=== PATIENT | female | born 2000 | race Two or more races ===

== ENCOUNTER 2022-09-03 18:49 | Emergency (ER) | payer OTHER ==
--- NOTE | 2022-09-03 19:04 | ED Physician Documentation ---
History of Present Illness - Stated complaint Stated Complaint: ABD PAIN - Chief complaint Chief Complaint: Abd Pain - Additonal information Additional information: 22-year-old female presents emergency department for evaluation of 2 days focal left lower quadrant pelvic pain. Reportedly approximately 11 weeks . . Last delivered vaginally. Complicated only by gestational diabetes. Patient just moved to the [place] from [place]. She has not yet had an ultrasound confirming IUP. States her last several weeks she has been having some intermittent spotting as well as low pelvic cramping. Denies urinary symptoms. No fevers. Review of Systems Constitutional: reports: Reviewed and negative Cardiac: reports: Reviewed and negative Respiratory: reports: Reviewed and negative GI: reports: Reviewed and negative : reports: Now EGA Skin: reports: Reviewed and negative Musculoskeletal: reports: Reviewed and negative PD PAST MEDICAL HISTORY - Allergies Allergies/Adverse Reactions: Allergies Allergy/AdvReac Type Severity Reaction Status Date / Time No Known Drug Allergies Allergy Verified 09/03/22 18:51 PD ED PE NORMAL - General General: Alert and oriented X 3, No acute distress - HEENT HEENT: Atraumatic, Moist mucous membranes - Neck Neck: Supple, no meningeal sign, No adenopathy - Cardiac Cardiac: RRR, No murmur - Respiratory Respiratory: No respiratory distress, Clear bilaterally - Abdomen Abdomen: Normal bowel sounds, Soft. No: Non tender (Focal tenderness in the left lower quadrant of the pelvic region. Nonsurgical.) - Back Back: No CVA TTP - Derm Derm: Normal color, Warm and dry, No rash - Extremities Extremities: No deformity - Neuro Neuro: Alert and oriented X 3, jack prizer 2-12 intact Eye Opening: Spontaneous Motor: Obeys Commands Verbal: Oriented GCS Score: 15 Results - Vitals Vitals: Vital Signs - 24 hr 09/03/22 18:51 Temperature 36.8 C Heart Rate 68 Respiratory 16 Rate Blood Pressure 108/66 O2 Saturation 100 Oxygen O2 Source Room air - Labs Labs: Laboratory Tests 09/03/22 09/03/22 09/03/22 19:05 19:05 19:05 WBC 6.4 RBC 4.44 Hgb 11.9 L Hct 36.3 L MCV 81.8 MCH 26.8 L MCHC 32.8 RDW 13.9 Plt Count 250 MPV 10.7 Neut # (Auto) 3.8 Lymph # (Auto) 2.0 [place] # (Auto) 0.4 Eos # (Auto) 0.1 Baso # (Auto) 0.0 Absolute Nucleated RBC 0.00 Nucleated RBC % 0.0 Sodium 134 L Potassium 3.4 L Chloride 103 Carbon Dioxide 24 Anion Gap 7.0 BUN 8 Creatinine 0.5 Estimated GFR (MDRD) 154 Glucose 93 Calcium 8.6 Total Bilirubin 0.2 AST 15 ALT 10 Alkaline Phosphatase 46 Total Protein 7.1 Albumin 3.7 Globulin 3.4 Albumin/Globulin Ratio 1.1 Lipase 26 HCG, Quant 127020.00 Urine Color Urine Clarity Urine pH Ur Specific [place] Urine Protein Urine Glucose (UA) Urine Ketones Urine Occult Blood Urine Nitrite Urine Bilirubin Urine Urobilinogen Ur Leukocyte Esterase Urine RBC Urine WBC Ur Squamous Epith Cells Urine Bacteria Urine Mucus Ur Microscopic Review Urine Culture Comments Blood Type 09/03/22 09/03/22 19:05 19:15 WBC RBC Hgb Hct MCV MCH MCHC RDW Plt Count MPV Neut # (Auto) Lymph # (Auto) [place] # (Auto) Eos # (Auto) Baso # (Auto) Absolute Nucleated RBC Nucleated RBC % Sodium Potassium Chloride Carbon Dioxide Anion Gap BUN Creatinine Estimated GFR (MDRD) Glucose Calcium Total Bilirubin AST ALT Alkaline Phosphatase Total Protein Albumin Globulin Albumin/Globulin Ratio Lipase HCG, Quant Urine Color YELLOW Urine Clarity CLEAR Urine pH 6.5 Ur Specific [place] 1.025 Urine Protein NEGATIVE Urine Glucose (UA) NEGATIVE Urine Ketones NEGATIVE Urine Occult Blood NEGATIVE Urine Nitrite NEGATIVE Urine Bilirubin NEGATIVE Urine Urobilinogen 0.2 (NORMAL) Ur Leukocyte Esterase SMALL H Urine RBC 0-5 Urine WBC 4-5 Ur Squamous Epith Cells FEW Squamous Urine Bacteria Few Urine Mucus Moderate Strands Ur Microscopic Review INDICATED Urine Culture Comments INDICATED Blood Type A POSITIVE - Rads (name of study) OB US Relevant Findings:: Other (Per cytotechnologist/histotechnologist 10-week 1 day living IUP with good heart rate. 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 Due to moving with the [place] she has not yet been able to establish with an OB. On presentation she does have some focal pain in the left lower quadrant of the abdomen but no guarding or rebound. She is without fever, tachycardia or hypotension. Did obtain CBC, electrolytes, hCG, blood type and urinalysis. She is Rh+. Otherwise no acute findings with labs. 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 There was a single live 10-week 1 day IUP with good heart rate. Unfortunately there is also an associated moderate left subchorionic hemorrhage. No findings today to suggest ectopic I discussed these findings with the patient at the bedside. She will follow closely with [facility] to obtain the appropriate referral to OB. We discussed the usual emergent return precautions for any worsening bleeding or symptomatology Departure - Departure Disposition: Home, Self Care Clinical Impression: Subchorionic hemorrhage in first trimester Qualifiers: Fetus number: single or unspecified fetus Qualified Code(s): O41.8X10 - Other specified disorders of amniotic fluid and membranes, first trimester, not applicable or unspecified; O46.8X1 - Other antepartum hemorrhage, first trimester Condition: Stable Record reviewed to determine appropriate education?: Yes Comments: As discussed at the bedside the ultrasound today does show an approximate 10- week 1 day live uterine . There is an associated subchorionic hemorrhage. As discussed at the bedside this is when the placenta can begin to separate somewhat from the uterus causing a little bit of spotting and bleeding. Your hormone level today is 191,000. This absolutely confirms It is very important that you continue to follow closely with an chief dispatcher service for longer-term management of this . You can continue the vitamins. With subchorionic hemorrhages such as yours there is little that we can do an medicine to prevent further bleeding or miscarriage if it were to occur. You simply need to monitor your symptoms. Return to the ER if you have severe vaginal bleeding and where you saturate a pad every hour for 4 or more hours. Return if you have fevers or any fainting episodes.
[2022-09-03 19:11] LABS: BASOPHILS % (AUTO) 0.5 %; EOSINOPHILS # (AUTO) 0.1 10^3/uL (0.0-0.7); EOSINOPHILS % (AUTO) 1.4 %; HCT - HEMATOCRIT 36.3 % (37.0-47.0); HGB - HEMOGLOBIN 11.9 g/dL (12.0-16.0); LYMPHOCYTES % (AUTO) 31.7 %; MEAN CORPUSCULAR HEMOGLOBIN 26.8 pg (27.0-31.0); MEAN CORPUSCULAR HGB CONC 32.8 g/dL (32.0-36.0); MEAN CORPUSCULAR VOLUME 81.8 fL (81.0-99.0); MEAN PLATELET VOLUME 10.7 fL (7.9-10.8); MONOCYTES # (AUTO) 0.4 10^3/uL (0.0-1.0); MONOCYTES % (AUTO) 6.3 %; NEUTROPHILS # (AUTO) 3.8 10^3/uL (1.5-6.6); NEUTROPHILS % (AUTO) 59.9 %; PLT - PLATELET COUNT 250 10^3/uL (130-450); RED BLOOD COUNT 4.44 10^6/uL (4.20-5.40); RED CELL DISTRIBUTION WIDTH 13.9 % (12.0-15.0); WHITE BLOOD COUNT 6.4 x10^3/uL (4.8-10.8)
[2022-09-03 19:24] LABS: ALBUMIN 3.7 g/dL (3.2-5.5); ALBUMIN/GLOBULIN RATIO 1.1 (1.0-2.2); BILIRUBIN,TOTAL 0.2 mg/dL (0.2-1.0); CALCIUM 8.6 mg/dL (8.5-10.3); CREATININE 0.5 mg/dL (0.4-1.0); POTASSIUM 3.4 mmol/L (3.5-5.0); TOTAL PROTEIN 7.1 g/dL (6.7-8.2)
[2022-09-03 19:35] LABS: BILIRUBIN,URINE NEGATIVE (NEGATIVE); GLUCOSE, URINE (UA) NEGATIVE (NEGATIVE); KETONES,URINE (UA) NEGATIVE (NEGATIVE); LEUKOCYTE ESTERASE, URINE SMALL (NEGATIVE); NITRITE,URINE NEGATIVE (NEGATIVE); OCCULT BLOOD,URINE NEGATIVE (NEGATIVE); PH,URINE 6.5 PH (5.0-7.5); PROTEIN,URINE NEGATIVE (NEGATIVE); UROBILINOGEN,URINE 0.2 (NORMAL) E.U./dL (NORMAL)
[2022-09-03 19:37] LABS: CLARITY,URINE CLEAR (CLEAR)
[2022-09-03 19:50] LABS: BACTERIA,URINE Few /HPF (None Seen); MUCUS,URINE Moderate Strands; RBC,URINE 0-5 /HPF (0-5); SQUAMOUS EPITHELIAL CELL,UR FEW Squamous (<= Few)
[2022-09-03 21:09] VITALS: BP 105/66
--- NOTE | 2022-09-03 22:22 | Ultrasound Report ---
PROCEDURE: OB First Trimester INDICATIONS: LLQ abd pain; r/o ectopic OUTSIDE/PRIOR DATING DATA: Last menstrual period (LMP): 06/16/2022. LMP-based estimated date of delivery (RAFY): 03/23/2023. First dating scan (date and location): 09/03/2022. Estimated date of delivery (RAFY) from first dating scan: 04/01/2023. TECHNIQUE: Real-time scanning was performed of the fetus and maternal pelvic organs, with image documentation. COMPARISON: None. FINDINGS: Embryo: There is an intrauterine with a gestational sac, yolk sac, and pole demonstr ated. The crown-rump length measures up to 3.2 cm corresponding to a gestational age of 10 weeks 0 da ys and estimated delivery date of 04/01/2023. There is heart motion with a rate of 176 bpm. The re is a perigestational subchorionic hematoma measuring approximately 3.3 x 3.4 x 3.7 cm. Measurement variability in dating: +/- 4 weeks by LMP, +/- 7 days by mean sac diameter (use before 6 weeks gestation if crown-rump length not able to be measured), +/- 5 days by crown-rump length (6-12 weeks gestation). Maternal organs: The ovaries appear within normal size limits. There is a thick-walled cystic structu re within the right ovary measuring up to 1.9 cm compatible with a corpus luteum. No adnexal masses. IMPRESSION: 1. Single living intrauterine with calculated gestational age of 10 weeks 0 days correspond ing to an estimated delivery date of 04/01/2023. 2. Perigestational subchorionic hematoma demonstrated. Recommend clinical follow-up and repeat ultras ound if indicated. Reviewed by: Armando Corrales MD on 09/03/2022 10:20 PM PDT Approved by: Armando Corrales MD on 09/03/2022 10:20 PM PDT Station ID: [id number]
== END 2022-09-03 21:11 | disposition home or self-care (01) ==
LOC: ED 18:49
DX: O46.8X1 Other antepartum hemorrhage, first trimester (principal); R10.32 Left lower quadrant pain; Z3A.10 10 weeks gestation of pregnancy
CPT/HCPCS: 36415; 80053; 81001; 81003; 83690; 84702; 85025; 86900; 86901; 87086; 99283; 99284

== ENCOUNTER 2023-08-21 15:56 | Outpatient (CLI) | payer OTHER ==
[2023-08-21 16:28] LABS: BILIRUBIN,URINE NEGATIVE (NEGATIVE); GLUCOSE, URINE (UA) NEGATIVE (NEGATIVE); KETONES,URINE (UA) TRACE mg/dL (NEGATIVE); LEUKOCYTE ESTERASE, URINE TRACE (NEGATIVE); NITRITE,URINE NEGATIVE (NEGATIVE); OCCULT BLOOD,URINE SMALL (NEGATIVE); PROTEIN,URINE NEGATIVE (NEGATIVE); UROBILINOGEN,URINE 0.2 (NORMAL) E.U./dL (NORMAL)
[2023-08-21 16:42] LABS: AMORPHOUS SEDIMENT,UR Marked /LPF; BACTERIA,URINE Few /HPF (None Seen); CLARITY,URINE CLOUDY (CLEAR); RBC,URINE 0-5 /HPF (0-5); SQUAMOUS EPITHELIAL CELL,UR FEW Squamous (<= Few)
== END 2023-08-21 15:57 | disposition home or self-care (01) ==
LOC: LAB.WC 15:56
PROVIDERS: ATTEND Nurse Practitioner
DX: Z34.90 Encounter for supervision of normal pregnancy, unspecified, unspecified trimester (principal)
CPT/HCPCS: 81001; 87086

== ENCOUNTER 2023-09-04 20:57 | Outpatient (CLI) | payer OTHER ==
--- NOTE | 2023-09-06 10:14 | Ultrasound Report ---
PROCEDURE: OB 1st Trimester INDICATIONS: POSITIVE TEST OUTSIDE/PRIOR DATING DATA: Last menstrual period (LMP): 07/06/2023. LMP-based estimated date of delivery (RAFY): 04/11/2024. First dating scan (date and location): 09/04/2023. Estimated date of delivery (RAFY) from first dating scan: 04/20/2024. TECHNIQUE: Real-time scanning was performed of the fetus and maternal pelvic organs, with image documentation. COMPARISON: None. FINDINGS: Intrauterine gestational sac present. Embryo: Yolk sac and pole are seen. [place]-rump length is 1.2 cm compatible with an estimated g estational age of 7 weeks 2 days. Heart rate: 145 bpm. Other: 2 perigestational sac fluid collections are seen measuring 2.8 x 1.4 x 2.5 cm and 3.2 x 1.7 x 2.8 cm Measurement variability in dating: +/- 4 weeks by LMP, +/- 7 days by mean sac diameter (use before 6 weeks gestation if crown-rump length not able to be measured), +/- 5 days by crown-rump length (6-12 weeks gestation). Maternal organs: Ovaries appear within normal limits. IMPRESSION: 1.Single live intrauterine with estimated gestational age of 7 weeks 2 days corresponding t o an ultrasound RAFY of 04/20/2024. 2.Two perigestational sac hemorrhages are seen measuring 2.8 x 1.5 x 2.5 cm and 3.2 x 1.7 x 2.8 cm re spectively. Reviewed by: Solomon Hernandez MD on 09/06/2023 10:13 AM PDT Approved by: Solomon Hernandez MD on 09/06/2023 10:13 AM PDT Station ID: [id number]
== END 2023-09-04 20:58 | disposition home or self-care (01) ==
LOC: DI 20:57
PROVIDERS: ATTEND Nurse Practitioner
DX: O20.8 Other hemorrhage in early pregnancy (principal); Z3A.01 Less than 8 weeks gestation of pregnancy

== ENCOUNTER 2023-09-23 08:00 | Outpatient (CLI) | payer OTHER ==
[2023-09-24 14:22] LABS: CHLAMYDIA TRACHOMATIS DNA NEGATIVE (NEGATIVE); NEISSERIA GONORRHOEAE DNA NEGATIVE (NEGATIVE); TRICHOMONAS VAGINALIS DNA NEGATIVE (NEGATIVE)
== END 2023-09-23 08:01 | disposition home or self-care (01) ==
LOC: LAB.WC 08:00
PROVIDERS: ATTEND Obstetrics & Gynecology
DX: Z11.3 Encounter for screening for infections with a predominantly sexual mode of transmission (principal)
CPT/HCPCS: 87491; 87591; 87661

== ENCOUNTER 2023-10-23 16:44 | Outpatient (CLI) | payer OTHER ==
[2023-10-23 17:35] LABS: BASOPHILS % (AUTO) 0.3 %; EOSINOPHILS # (AUTO) 0.1 10^3/uL (0.0-0.7); EOSINOPHILS % (AUTO) 0.9 %; HCT - HEMATOCRIT 34.3 % (37.0-47.0); HGB - HEMOGLOBIN 11.6 g/dL (12.0-16.0); LYMPHOCYTES # (AUTO) 1.6 10^3/uL (1.5-3.5); LYMPHOCYTES % (AUTO) 23.6 %; MEAN CORPUSCULAR HEMOGLOBIN 27.6 pg (27.0-31.0); MEAN CORPUSCULAR HGB CONC 33.8 g/dL (32.0-36.0); MEAN CORPUSCULAR VOLUME 81.5 fL (81.0-99.0); MEAN PLATELET VOLUME 11.2 fL (7.9-10.8); MONOCYTES # (AUTO) 0.4 10^3/uL (0.0-1.0); MONOCYTES % (AUTO) 6.7 %; NEUTROPHILS # (AUTO) 4.5 10^3/uL (1.5-6.6); NEUTROPHILS % (AUTO) 68.3 %; PLT - PLATELET COUNT 216 10^3/uL (130-450); RED BLOOD COUNT 4.21 10^6/uL (4.20-5.40); RED CELL DISTRIBUTION WIDTH 14.5 % (12.0-15.0); WHITE BLOOD COUNT 6.6 x10^3/uL (4.8-10.8)
[2023-10-23 20:21] LABS: ESTIMATED AVERAGE GLUCOSE 94 mg/dL (70-100); HEMOGLOBIN A1c% 4.9 % (4.27-6.07)
[2023-10-24 05:12] LABS: HBsAG SCREEN Negative (Negative); HIV SCREEN 4TH GENERATION Non Reactive (Non Reactive)
[2023-10-24 08:10] LABS: RPR Non Reactive (Non Reactive)
[2023-10-24 12:09] LABS: VARICELLA-ZOSTER AB IGG 828 index (Immune >165)
[2023-10-26 06:08] LABS: HCV AB Non Reactive (Non Reactive)
== END 2023-10-23 16:45 | disposition home or self-care (01) ==
LOC: LAB 16:44
PROVIDERS: ATTEND Nurse Practitioner
DX: Z34.90 Encounter for supervision of normal pregnancy, unspecified, unspecified trimester (principal); Z86.32 Personal history of gestational diabetes
CPT/HCPCS: 36415; 83036; 85025; 86592; 86762; 86787; 86803; 86850; 86900; 86901; 87340; 87389

== ENCOUNTER 2023-12-17 20:58 | Outpatient (CLI) | payer OTHER ==
--- NOTE | 2023-12-20 22:24 | Ultrasound Report ---
PROCEDURE: OB Anatomy Scan INDICATIONS: SUPERVISION OF OUTSIDE/PRIOR DATING DATA: Last menstrual period (LMP): 07/06/2023. LMP-based estimated date of delivery (RAFY): 04/11/2024. First dating scan (date and location): 09/04/2023. Estimated date of delivery (RAFY) from first dating scan: 04/20/2024. The below data below was generated using the ultrasound RAFY of 04/20/2024 TECHNIQUE: Real-time scanning was performed of the fetus, with image documentation and biometric measurements. COMPARISON: OB ultrasound 09/04/2023 FINDINGS: General: A single living intrauterine gestation is present. Presentation: Vertex Placenta: Placental position is posterior, without previa. Amniotic fluid index: 17.8 cm, within normal limits for gestational age. heart rate: 136 beats per minute. Maternal cervical canal: 3.4 cm long; normal length is 2.5 cm or more. biometrics: Biparietal diameter: 5.8 cm 21 weeks 4 days 27th percentile Head circumference: 20.4 cm 20 weeks 2 days 53rd percentile Abdominal circumference: 19 cm 23 weeks 5 days 87th percentile Femur length: 4.0 cm 22 weeks 6 days 62nd percentile Estimated gestational age from initial scan: 22 weeks 1 day Composite gestational age from present scan: 22 weeks 2 days Estimated weight and percentile: 567 g 82nd percentile Measurement variability in biometric dating: +/- 10 days from 12-20 weeks gestation, +/- 2 weeks from 20-30 weeks gestation, +/- 3 weeks at 30 weeks gestation or later. Anatomic survey: Neuro: Ventricles are normal at less than 10 mm. Cisterna magna is normal at 3-11 mm. Cerebellum i s normal in size and morphology. Nuchal skin fold: Normal at less than 6 mm between 14 and 20 weeks gestational age. Face: Nose and lips, facial profile are not well seen. Spine: Not well seen. Heart: 4-chambered heart is present, with normal ventricular outflow tracts. Diaphragm: Diaphragm is intact. Stomach: Left-sided stomach is present. Kidneys: No hydronephrosis. Normal is less than 5 mm in 2nd trimester, less than 7 mm in 3rd trimester. Cord: 3 vessel cord has orthotopic insertion. Bladder: Normal in size. Extremities: All 4 extremities are visualized. IMPRESSION: Single live intrauterine with gestational age of 20 weeks 2 days. Nose/lips/ profile cervical spine are not well seen. Recommend interval follow-up. Reviewed by: Jacinda Wolf MD on 12/20/2023 10:23 PM PDT Approved by: Jacinda Wolf MD on 12/20/2023 10:23 PM PDT Station ID: [id number]
== END 2023-12-17 20:59 | disposition home or self-care (01) ==
LOC: DI 20:58
PROVIDERS: ATTEND Nurse Practitioner
DX: Z34.92 Encounter for supervision of normal pregnancy, unspecified, second trimester (principal)

== ENCOUNTER 2024-04-13 08:01 | Inpatient (IN) ==
[2024-04-13] MEDS ORDERED: TRANEXAMIC ACID IN NACL 1,000 MG/100 ML BAG IV PRN (09:09)
[2024-04-13] MEDS ORDERED: LABETALOL 20 MG/4 ML SYRINGE IVP PRN ×5 (09:09→18:53)
[2024-04-13] MEDS ORDERED: CARBOPROST TROMETHAMINE 250 MCG/ML VIAL IM PRN (09:09)
[2024-04-13] MEDS ORDERED: LACTATED RINGERS 1,000 ML IV PRN (09:09)
[2024-04-13] MEDS ORDERED: lidocaine 1% 20 ML MDV ID PRN (09:09)
[2024-04-13] MEDS ORDERED: OXYTOCIN/SODIUM CHLORIDE 500 ML IV PRN ×2 (09:09→18:53)
[2024-04-13] MEDS ORDERED: METHYLERGONOVINE 0.2 MG/ML VIAL IM PRN (09:09)
[2024-04-13] MEDS ORDERED: miSOPROStoL 200 MCG TABLET BC PRN (09:09)
[2024-04-13] MEDS ORDERED: OXYTOCIN 10 UNIT/ML VIAL IM PRN (09:09)
[2024-04-13] MEDS ORDERED: NIFEdipine 10 MG CAPSULE PO PRN ×2 (09:09→18:53)
[2024-04-13] MEDS ORDERED: hydrALAZINE INJ 20 MG/ML VIAL IVP PRN ×4 (09:09→18:53)
--- NOTE | 2024-04-13 09:09 | HISTORY & PHYSICAL EXAMINATION ---
Admit History Smoking Status: Former smoker Other Maternal History Other Maternal History: HPI: This 24yo @ 39 weeks by 7+2 week ultrasound not concordant with RAFY. She is here for elective schedule ALONZO SCORE: 8 We reviewed management options at length and patient desires to start induction by initiating GBS prophylaxis and then pitocin as her method of induction. She has been a patient of [facility] for the duration of her which has remained uncomplicated. Does have a diagnosis of periodontal disease. ROS: No Headache, visual changes or right upper quadrant abdominal pain. Denies significant N/V. Denies urinary urgency or dysuria. All other symptoms reviewed and were negative except per HPI. In the event of an emergency, accepts the administration of blood products. Recent BP:WNL Labs: pending Last u/s EFW: 82% @ 20+2 weeks Total maternal weight gain: 9.1# LMP 07/06/2023 LMP based RAFY: 04/11/2024 09/04/2023 @ 7+2 weeks US RAFY: 04/20/2024 Final RAFY: 04/20/2024 OB Hx: G1: 06/09/2021: 39 week, , 9# Reinaldo (Male) Tx, increased bleeding (no hemorrhage), perineal laceration (unknown degree), epidural G2: 03/31/2023 41 weeks, , 7# Izekeal (Male) Tx, intact, epidural G3: current Medical Hx: No significant Surgical Hx: None Social Hx: Monogamous with male partner. Denies current use of alcohol or tobacco, marijuana or other recreational drugs. Former smoker. Reports that she is safe in current relationship. FOB [employer]. Family Hx: Patients sister has Downs Syndrome. No family hx of cystic Fibrosis or other chromosomal abnormalities Allergies: NKDA Medications: PNV, famotidine Pre- Weight:140.8 BMI: 25.85 Blood type: A+ Antibody: Negative CBC:H/H 11.6/34.3 plt 216 RUB: Immune VZV: Immune HBsAg: Neg Hep C: NR RPR/AB-EIA:NR HIV:NR PAP:2022 after delivery GC/CT: Negative HSV: denies in self partner Genetic testing: Flu: FAS: Placenta: posterior w/o previa Cord:3VC EFFIE:17.8cm wnl EFW:567g 82nd%ile Nose, lips, profile not well seen F/U ordered 12/20 50gm OGCT: ordered 01/11 reminded, but not completed. Hx of GDM 3HR GTT: TDAP: Breast Pump: RPR ordered 01/11 Antibody screen: 3rd trimester H/H PLT- ordered 01/11 3rd trimester HIV GBS: positive Delivery plan: Hoping for unmedicated delivery. Had one-sided epidural with her last delivery. Okay all baby meds. . Accepts saline lock. Accepts active management of the third stage. MOD: Anticipate Contraception: thinking this will be her last . Physical exam: Normocephalic, atraumatic Lungs No increased work of breathing. Abdomen gravid, soft, nontender. EFW 3700 FHR baseline 125, moderate variability, + accelerations, no decelerations Contractions irregular, uterine resting tone soft SVE4/80/-2, vertex, membranes intact Bilateral LE's no edema Mood is good. Assessment: 24 yo @ 38+3 weeks gestation by 7+2 wk U/S SROM FHR 125 Cat I GBS POSITIVE Plan: Admit to [facility] for induction of labor Continuous monitoring Jacuzzi PRN. Nitrous oxide PRN. Epidural PRN Maternal Request. Anticipate . Meds/Allgy Home Medications Ambulatory Orders Medication Instructions Recorded Confirmed vits 75-iron 28 mg-folic pkg PO 01/12/24 04/08/24 acid 800 mcg-omega3 440 mg oral pack (One Daily ) famotidine 20 mg tablet See Rx Instructions .Route 01/22/24 04/08/24 .COMPLEX #180 tabs Allergies Allergies Allergy/AdvReac Type Severity Reaction Status Date / Time No Known Drug Allergies Allergy Verified 04/08/24 16:39 [facility] Medical History Medical History (Updated 04/01/24 @ 10:23 by Alexandra Silva CNM, STAGE SET DESIGNER) Encounter for screening for Streptococcus B Anxiety Family History Family History (Updated 03/24/24 @ 16:58 by Magaly Garcia MA) Father High blood pressure Mother Diabetes Social History Social History (Updated 01/12/24 @ 15:37 by Diana Amezcua LPN) Smoking Status: Former smoker Relationship: Spouse Living Situation Details: Chris. 2 boys moved from [place] 06/2023. born and raised there. Chris in [place], She is home with boys Level: Independent Are you sexually active?: No Plan for Labor Plan For Labor I expect patient to be DC'd or transferred within 96 hours.: Yes Conclusion/Plan Lab Results 04/13/24 08:55
[2024-04-13 09:32] LABS: BASOPHILS % (AUTO) 0.5 %; EOSINOPHILS # (AUTO) 0.1 10^3/uL (0.0-0.7); EOSINOPHILS % (AUTO) 1.2 %; HCT - HEMATOCRIT 30.1 % (37.0-47.0); HGB - HEMOGLOBIN 8.8 g/dL (12.0-16.0); LYMPHOCYTES # (AUTO) 1.4 10^3/uL (1.5-3.5); LYMPHOCYTES % (AUTO) 21.8 %; MEAN CORPUSCULAR HEMOGLOBIN 22.6 pg (27.0-31.0); MEAN CORPUSCULAR HGB CONC 29.2 g/dL (32.0-36.0); MEAN CORPUSCULAR VOLUME 77.4 fL (81.0-99.0); MEAN PLATELET VOLUME 10.9 fL (7.9-10.8); MONOCYTES # (AUTO) 0.5 10^3/uL (0.0-1.0); NEUTROPHILS # (AUTO) 4.3 10^3/uL (1.5-6.6); NEUTROPHILS % (AUTO) 67.4 %; PLT - PLATELET COUNT 251 10^3/uL (130-450); RED BLOOD COUNT 3.89 10^6/uL (4.20-5.40); RED CELL DISTRIBUTION WIDTH 16.1 % (12.0-15.0); WHITE BLOOD COUNT 6.4 x10^3/uL (4.8-10.8)
[2024-04-13] MEDS: AMPICILLIN 2 GM in SODIUM CHLORIDE 0.9% MINIBAG 100 ML IV ONE (10:14)
[2024-04-13] MEDS: SODIUM CHLORIDE FLUSH 0.9% 10 ML SYRINGE IVP PRN (10:17)
[2024-04-13] MEDS: OXYTOCIN/SODIUM CHLORIDE 500 ML IV SCH (11:17)
[2024-04-13] MEDS: LACTATED RINGERS 1,000 ML IV PRN (11:33)
[2024-04-13] MEDS: FAMOTIDINE 20 MG TABLET PO PRN (11:41)
--- NOTE | 2024-04-13 12:14 | PHARMACY PROGRESS NOTE ---
Best Possible Medication History Admit Date and Time: 04/13/24 [id number] Home Medications Medication Instructions Recorded Confirmed Type famotidine 20 mg tablet See Rx Instructions .Route 01/22/24 04/13/24 Rx .COMPLEX #180 tabs vit no.95-ferrous 1 tab PO DAILY 04/13/24 04/13/24 History fumarate 28 mg-folic acid 800 mcg tablet ( Formula) Processed by: Nursing (confirmed with nursing staff) Medications reviewed in ED?: No Medication History completed: Yes Secondary Source(s): Insurance records [facility] Statement: As the person ultimately responsible for medication therapy, providers are able to order a medication from an existing home medication list in [facility] via the "Reconcile Routine" prior to Confirmation of that medication by child support case officer. Such practice is discouraged except when the physician, in their clinical judgment, deems that a medical need exists for a medication without regard to previous use.
[2024-04-13] MEDS: AMPICILLIN 1 GM in SODIUM CHLORIDE 0.9% MINIBAG 100 ML IV SCH (14:00)
--- NOTE | 2024-04-13 14:38 | PROVIDER PROGRESS NOTE ---
Labor Progress Note Labor Progress Note Labor Progress Note/Additional Text: S: Relatively comfortable. S/P 4 hours from first dose of ampicillin. Requesting to use nitrous oxide prior to any vaginal exams. Her is supportive and currently napping at bedside. . O: FHR 140's, no audible significant decelerations Oxytocin now at 8mu/min 5/80/-2 A: 24 yo @ 39 wks gestation by first trimester ultrasound Early labor GBS positive P: AROM, large amount of clear fluid. Desiring for a without an epidural. Desires nitrous for advancing discomfort Continuous monitoring now. Continue ampicillin for GBS prophylaxis per protocol. Anticipate .
[2024-04-13] MEDS ORDERED: ROPIVACAINE 0.2% 200 MG/100 ML BAG EP ONE (15:42)
[2024-04-13] MEDS ORDERED: LIDOCAINE 2%-EPI 1:100000 20 ML MDV ONE (15:42)
[2024-04-13] MEDS ORDERED: NALBUPHINE 10 MG/ML AMP IVP PRN (16:48)
[2024-04-13] MEDS ORDERED: NALOXONE 0.4 MG/ML VIAL IVP PRN ×2 (16:48→18:53)
[2024-04-13] MEDS ORDERED: METOCLOPRAMIDE 10 MG/2 ML VIAL IVP PRN (16:48)
[2024-04-13] MEDS ORDERED: ePHEDrine 50 MG/ML VIAL IVP PRN (16:48)
[2024-04-13] MEDS ORDERED: diphenhydrAMINE INJ 50 MG/ML VIAL IVP PRN (16:48)
[2024-04-13] MEDS ORDERED: ONDANSETRON 4 MG/2 ML VIAL IVP PRN (16:48)
[2024-04-13] MEDS ORDERED: LACTATED RINGERS 500 ML IV ONE (16:48)
[2024-04-13] MEDS ORDERED: ROPIVACAINE 0.2% 200 MG/100 ML BAG EP PRN (16:48)
--- NOTE | 2024-04-13 16:52 | ANESTHESIA PROCEDURE NOTE ---
Pre-Anesthesia VS, & Labs Diagnosis Surgical Diagnosis:: IOL/39 weeks Procedure Procedure: placement of labor epidural Vitals Vital Signs: Temp Pulse Resp BP Pulse Ox 36.8 C 78 16 104/61 100 04/13/24 12:40 04/13/24 12:40 04/13/24 12:40 04/13/24 12:40 04/13/24 12:40 Height (in): 5 ft 2 in Weight (kg): 70 kg Body Mass Index: 28.2 BMI Classification: Overweight NPO Last Fluid Intake: currently clears Is Patient ?: Yes Estimated Due Date:: 04/13/24 Lab Results Current Lab Results: Laboratory Tests 04/13/24 08:55: WBC 6.4, RBC 3.89 L, Hgb 8.8 L, Hct 30.1 L, MCV 77.4 L, MCH 22.6 L, MCHC 29.2 L, RDW 16.1 H, Plt Count 251, MPV 10.9 H, Neut # (Auto) 4.3, Lymph # (Auto) 1.4 L, [place] # (Auto) 0.5, Eos # (Auto) 0.1, Baso # (Auto) 0.0, Absolute Nucleated RBC 0.00, Nucleated RBC % 0.0, Blood Type A POSITIVE, Antibody Screen NEGATIVE Lab results reviewed: Yes 04/13/24 08:55 Meds/Allgy Home Medications Ambulatory Orders Medication Instructions Recorded Confirmed famotidine 20 mg tablet See Rx Instructions .Route 01/22/24 04/13/24 .COMPLEX #180 tabs vit no.95-ferrous 1 tab PO DAILY 04/13/24 04/13/24 fumarate 28 mg-folic acid 800 mcg tablet ( Formula) Allergies Allergies Allergy/AdvReac Type Severity Reaction Status Date / Time No Known Drug Allergies Allergy Verified 04/08/24 16:39 [facility] Medical History Medical History (Updated 04/01/24 @ 10:23 by Alexandra Silva CNM, PLUMBING ASSEMBLER INSTALLER) Encounter for screening for Streptococcus B Anxiety Family History Family History (Updated 03/24/24 @ 16:58 by Magaly aGrcia MA) Father High blood pressure Mother Diabetes Social History Social History Smoking Status: Former smoker Relationship: Spouse Living Situation Details: Chris. 2 boys moved from [place] 06/2023. born and raised there. Chris in [place], She is home with boys Level: Independent Are you sexually active?: No Anesthesia Exam (Expanded) Exam General: Mild distress Dental: WNL Mouth Openin Fingerbreadth Neck Mobility: Normal Thyromental Distance: 4-6 cm Respiratory: Lungs clear Cardiovascular: Regular rate Plan Problem List (1) Heartburn during in third trimester: Plan Anesthesia Type: Epidural Consent for Procedure(s) Verified and Reviewed: Yes Code Status: Attempt Resuscitation ASA Classification ASA classification: 1-Healthy patient Is this case an emergency?: No
[2024-04-13] MEDS ORDERED: SODIUM CHLORIDE FLUSH 0.9% 10 ML SYRINGE IVP SCH (17:00)
--- NOTE | 2024-04-13 18:35 | DELIVERY NOTE ---
Delivery Note Delivery Comments (Free Text/Narrative) Delivery Comments (Free Text/Narrative): This 24 -year-old, @ 39 weeks gestation presented for elective induction of labor. Cervix was 4/60/-2 and Vertex presentation by lino's. Hogan score 8. GBS positive, treated. Induction began with oxytocin and she was further augmented by AROM @ 1350 on 04/14/2024. FHR pattern demonstrated 130-140 baseline and category I prior to second stage. Normal labor course. Epidural placed upon maternal request. She then progressed quickly to to complete/complete and ready to deliver. : Normal spontaneous vaginal delivery of a viable female on 04/14/2024 @ 1817. Nuchal x 1, delivered through. The was placed on maternal abdomen, stimulated, dried and placed skin to skin. Apgars 8 & 9 @ 1 & 5 minutes. The umbilical cord was allowed to stop pulsating at which time it was doubly clamped by delivering provider and cut by FOB. 3VC. Cord blood was obtained. Fundal massage and gently cord traction applied for active management of the third stage, placenta delivered spontaneously and intact and appeared normal. EBL 400. Placenta was not sent to pathology. Pitocin administered via IV for hemostasis and allowed to run freely. Uterine massage was performed until uterus was deemed firm. weight 3435g. Inspection of the perineum. Upon re-inspection the patient was hemostatic. Uterus again massaged and found to be firm. Needle and sponge counts were correct. Uterine fundus firm and there is no excessive bleeding. Tissues well approximated. Skin to skin initiated. Family bonding well. Both mother and baby are in stable condition.
[2024-04-13] MEDS ORDERED: SIMETHICONE CHEW 80 MG TABLET PO PRN (18:53)
[2024-04-13] MEDS ORDERED: LABETALOL 5 MG/1 ML 20 ML MDV IVP PRN (18:53)
[2024-04-13] MEDS: IBUPROFEN 600 MG TABLET PO PRN (22:23)
[2024-04-13] MEDS: ACETAMINOPHEN 500 MG TABLET PO PRN (22:23)
[2024-04-13] MEDS: DOCUSATE SODIUM 100 MG CAPSULE PO SCH (22:23)
[2024-04-13 23:08] VITALS: O2SAT 98
--- NOTE | 2024-04-14 09:55 | PROVIDER PROGRESS NOTE ---
Subjective Subjective Subjective: in quite a bit of pain. PRN gabepentin ordered. K pad, IBU and tylenol not helping. Desires to stay another night for comfort and assistance from nursing team. Current Medications Current Medications Current Medications: Current Medications Generic Name Dose Route Start Last Admin Trade Name Freq PRN Reason Stop Dose Admin Acetaminophen 1,000 mg 04/13/24 18:53 04/14/24 09:35 Acetaminophen 500 Mg Tablet PO 1,000 mg Q8HR PRN Administration Mild Pain or Fever>38C(100.4F) Carboprost Tromethamine 250 mcg 04/13/24 09:09 Carboprost Tromethamine 250 Mcg/Ml Vial IM 04/18/24 09:09 Q15M PRN Step 4: Hemorrhage protocol Diphenhydramine HCl 12.5 - 25 mg 04/13/24 16:48 Diphenhydramine Inj 50 Mg/Ml Vial IVP Q6HR PRN ITCHING Docusate Sodium 100 mg 04/13/24 21:00 04/14/24 09:37 Docusate Sodium 100 Mg Capsule PO 100 mg BID ALBERT Administration Ephedrine Sulfate 5 mg 04/13/24 16:48 Ephedrine 50 Mg/Ml Vial IVP Q5M PRN For SBP<100;give until SBP>100 Famotidine 20 mg 04/13/24 09:23 04/14/24 05:22 Famotidine 20 Mg Tablet PO 20 mg PRN PRN Administration Heartburn Gabapentin 300 mg 04/14/24 09:52 Gabapentin 300 Mg Capsule PO TID PRN PAIN 5-7 Hydralazine HCl 5 - 20 mg 04/13/24 09:09 Hydralazine Inj 20 Mg/Ml Vial IVP Q20M PRN SBP >160 or DBP >110 Protocol Hydralazine HCl 10 mg 04/13/24 09:09 Hydralazine Inj 20 Mg/Ml Vial IVP 04/18/24 09:09 .ONCE PRN Step 9 of Labetalol protocol Protocol Hydralazine HCl 10 mg 04/13/24 18:53 Hydralazine Inj 20 Mg/Ml Vial IVP .ONCE PRN SBP> or= 160 OR DBP> or= 110 Protocol Hydralazine HCl 5 - 10 mg 04/13/24 18:53 Hydralazine Inj 20 Mg/Ml Vial IVP Q20M PRN SBP >=160 and/or DBP >=110 Protocol Lactated Ringer's 1,000 mls @ 100 mls/hr 04/13/24 09:09 04/14/24 08:27 Lr IV Infused .Q10H PRN Infusion Save for active labor Oxytocin/Sodium Chloride 500 mls @ 999 mls/hr 04/13/24 09:09 Pitocin/Sodium Chloride IV 04/18/24 09:09 PRN PRN POST- HEMORR PREVENTION Protocol 999 MILLIUNIT/MIN Tranexamic Acid 1,000 mg in 100 mls @ 600 mls/hr 04/13/24 09:09 Tranexamic 1,000 Mg/100ml-Nacl IV 04/18/24 09:09 .ONCE PRN EBL >1200mL and within 3hr Lactated Ringer's 1,000 mls @ 999 mls/hr 04/13/24 09:09 Lr IV PRN PRN distress Ampicillin Sodium 1 gm/ Sodium 100 mls @ 200 mls/hr 04/13/24 14:00 04/13/24 18:18 Chloride IV Infused Q4H ALBERT Infusion Oxytocin/Sodium Chloride 500 mls @ 2 mls/hr 04/13/24 10:00 04/13/24 19:18 Pitocin/Sodium Chloride IV Infused TITR ALBERT Titration Protocol 2 MILLIUNIT/MIN Ropivacaine 200 mg in 100 mls @ 0 mls/hr 04/13/24 16:48 Naropin 0.2% EP PRN PRN PAIN Protocol Per Protocol Oxytocin/Sodium Chloride 500 mls @ 999 mls/hr 04/13/24 18:53 Pitocin/Sodium Chloride IV PRN PRN POST- HEMORR PREVENTION Protocol 999 MILLIUNIT/MIN Ibuprofen 600 mg 04/13/24 18:53 04/14/24 05:18 Ibuprofen 600 Mg Tablet PO 600 mg Q6HR PRN Administration Moderate Pain (Level 4-6) Labetalol HCl 20 - 80 mg 04/13/24 09:09 Labetalol 20 Mg/4 Ml Syringe IVP Q10M PRN SBP >160 or DBP >110 Protocol Labetalol HCl 20 mg 04/13/24 09:09 Labetalol 20 Mg/4 Ml Syringe IVP 04/18/24 09:09 .ONCE PRN Step 9 of nifedipine protocol Protocol Labetalol HCl 40 mg 04/13/24 09:09 Labetalol 20 Mg/4 Ml Syringe IVP 04/18/24 09:09 .ONCE PRN Step 9 of hydrALAZine protocol Protocol Labetalol HCl 20 - 80 mg 04/13/24 18:53 Labetalol 5 Mg/1 Ml 20 Ml Mdv IVP Q10M PRN SBP> or= 160 OR DBP> or= 110 Protocol Labetalol HCl 20 - 40 mg 04/13/24 18:53 Labetalol 20 Mg/4 Ml Syringe IVP Q10M PRN SBP> or= 160 OR DBP> or= 110 Protocol Labetalol HCl 20 mg 04/13/24 18:53 Labetalol 20 Mg/4 Ml Syringe IVP .ONCE PRN SBP >=160 and/or DBP >=110 Protocol Lidocaine HCl 20 ml 04/13/24 09:09 Lidocaine 1% 20 Ml Mdv ID 04/18/24 09:09 .ONCE PRN PERINEAL REPAIR Methylergonovine Maleate 0.2 mg 04/13/24 09:09 Methylergonovine 0.2 Mg/Ml Vial IM 04/18/24 09:09 .ONCE PRN Step 2: Hemorrhage protocol Metoclopramide HCl 10 mg 04/13/24 16:48 Metoclopramide 10 Mg/2 Ml Vial IVP Q6HR PRN Nausea / Vomiting Misoprostol 800 mcg 04/13/24 09:09 Misoprostol 200 Mcg Tablet BC 04/18/24 09:09 .ONCE PRN Step 3: Hemorrhage protocol Nalbuphine HCl 2.5 - 5 mg 04/13/24 16:48 Nalbuphine 10 Mg/Ml Amp IVP Q4H PRN ITCHING Naloxone HCl 0.1 mg 04/13/24 16:48 Naloxone 0.4 Mg/Ml Vial IVP Q2M PRN RR<8 Naloxone HCl 0.4 mg 04/13/24 18:53 Naloxone 0.4 Mg/Ml Vial IVP .ONCE PRN Opioid Overdose Nifedipine 10 - 20 mg 04/13/24 09:09 Nifedipine 10 Mg Capsule PO Q20M PRN SBP >160 or DBP >110 Protocol Nifedipine 10 - 20 mg 04/13/24 18:53 Nifedipine 10 Mg Capsule PO Q20M PRN SBP >=160 and/or DBP >=110 Protocol Ondansetron HCl 4 mg 04/13/24 16:48 Ondansetron 4 Mg/2 Ml Vial IVP Q6HR PRN Nausea / Vomiting Oxytocin 10 unit 04/13/24 09:09 Oxytocin 10 Unit/Ml Vial IM 04/18/24 09:09 .ONCE PRN Step one: If no IV access Simethicone 80 mg 04/13/24 18:53 Simethicone Chew 80 Mg Tablet PO TID PRN Gas Sodium Chloride 10 ml 04/13/24 17:00 Sodium Chloride Flush 0.9% 10 Ml Syringe IVP 0100,0900,1700 ALBERT Sodium Chloride 10 ml 04/13/24 09:09 04/13/24 10:17 Sodium Chloride Flush 0.9% 10 Ml Syringe IVP 10 ml PRN PRN Administration NEEDED PER PROVIDER ORDERS Objective Vital Signs/Intake & Output Vital Signs: Vital Signs x48h Temp Pulse Resp BP Pulse Ox 04/14/24 05:40 36.7 C 98 16 118/74 98 Intake & Output: Intake & Output 04/11/24 04/12/24 04/13/24 04/14/24 23:59 23:59 23:59 23:59 Intake Total 930 / 930 1400 / 1400 Output Total 600 / 600 Balance 330 / 330 1400 / 1400 Weight (kg) 154 lb 5.177 oz Lab Results 04/13/24 08:55 Other Labs: Lab Results x24hrs 04/13/24 Range/Units 08:55 Blood Type A POSITIVE Antibody Screen NEGATIVE Assessment/Plan Problem List (1) Heartburn during in third trimester:
[2024-04-14] MEDS: GABAPENTIN 300 MG CAPSULE PO PRN (10:33)
[2024-04-14 10:35] VITALS: BP 111/53; TEMP 97.9
--- NOTE | 2024-04-14 17:44 | Discharge Summary ---
Discharge Summary HPI History of Present Illness: Date of Admission: 04/13/2024 Date of Discharge: 04/14/2024 Diagnosis on admission: 1. 24yo @ 39+0 weeks gestation 2. GBS negative 3. Term elective IOL 4. GBS positive Diagnosis on Discharge 1. 24yo s/p 2. intact perineum Physical exam: Normal uterine involution Small rubra bleeding perineal discomfort. Bilateral LE's no edema Mood is good. Brief History: She is a patient of [facility] who presented on 04/13/2024 for schedule elective IOL. She received IV pitiocin followed by [facility]OM for labor intervention. Epidural for labor anesthesia. She spontaneously delivered a viable female apgars 8 and 9 at 1 and 5 minutes respectively. EBL 400 ml. intact perineum. weight: 3435g She has been doing well in her course. She is ambulating and tolerating a regular diet. She is urinating without difficulty and her lochia is normal. Her pain is well controlled without narcotic management. She will be discharged to home today on day #1 and encouraged IBU, tylenol and stool softeners PRN. She intends to follow up with [facility] in 1 week for telehealth. She has been given precautions to call if she has any new or worsening sx such as fevers, chills, abdominal pain, increasing bleeding, or foul smelling vaginal lochia. preeclamptic precautions reviewed as well. ALLERGIES Allergies Allergy/AdvReac Type Severity Reaction Status Date / Time No Known Drug Allergies Allergy Verified 04/08/24 16:39 MEDICATIONS Ambulatory Orders Medication Instructions Recorded Confirmed famotidine 20 mg tablet See Rx Instructions .Route 01/22/24 04/13/24 .COMPLEX #180 tabs vit no.95-ferrous 1 tab PO DAILY 04/13/24 04/13/24 fumarate 28 mg-folic acid 800 mcg tablet ( Formula) acetaminophen 500 mg tablet 500 mg PO Q6H PRN pain #30 tabs 04/14/24 (Tylenol Extra Strength) docusate sodium 100 mg capsule 100 mg PO BID #60 caps 04/14/24 gabapentin 300 mg capsule 300 mg PO BID #14 caps 04/14/24 ibuprofen 600 mg tablet (IBU) 600 mg PO TID PRN pain #30 tabs 04/14/24 LABS 04/13/24 08:55 Discharge Plan Discharge Patient Disposition: Home, Self Care Prescriptions: Continued famotidine 20 mg tablet See Rx Instructions .ROUTE .COMPLEX Qty: 180 0RF Dose Instruction: TAKE 1 TABLET BY MOUTH TWICE DAILY NEEDED FOR HEARTBURN Rx Instructions: TAKE 1 TABLET BY MOUTH TWICE DAILY NEEDED FOR HEARTBURN ibuprofen [IBU] 600 mg tablet 600 mg PO TID PRN (Reason: pain) Qty: 30 2RF gabapentin 300 mg capsule 300 mg PO BID Qty: 14 0RF acetaminophen [Tylenol Extra Strength] 500 mg tablet 500 mg PO Q6H PRN (Reason: pain) Qty: 30 1RF docusate sodium 100 mg capsule 100 mg PO BID Qty: 60 1RF PNV cmb#95-ferrous fumarate-FA [ Formula] 28 mg iron- 800 mcg tablet 1 tab PO DAILY Print Language: Indonesian Patient Instructions: Vaginal After
--- NOTE | 2024-04-14 20:46 | Labor Flowsheet ---
Labor Flowsheet Datetime Report Generated by CPN: 04/14/2024 20:46 Datetime: 04/14/2024 09:39 VITAL SIGNS NBP Sys/Kaylyn/Mean (mmHg): 111 : 53 : 66 Pulse: 87 Datetime: 04/13/2024 22:00 Stage of : Recovery Pain Assessment Comments: Epidural cathereter removed tip intact Datetime: 04/13/2024 21:30 PAIN Pain Scale: 2 Pain Presence: Intermittent Datetime: 04/13/2024 20:00 Pain Type: Cramping Datetime: 04/13/2024 19:30 Respirations: 16 SpO2 (%): 98 Temperature (C): 36.6 Temperature Route: Oral Bedside Blood Glucose: 1 Datetime: 04/13/2024 19:08 Membranes Ruptured Date/Time: 04/13/2024 13:50 Datetime: 04/13/2024 18:30 LaborFlag: Labor Datetime: 04/13/2024 18:19 MEDICATIONS Pitocin (milliunits): Increased to @ 999 Datetime: 04/13/2024 18:17 Stage 2 Comments: Delivered Datetime: 04/13/2024 18:15 Frequency (min): 2-3 Contraction Comments: pushing resumed this segment ASSESSMENT A Monitor Mode: Telemetry FHR Baseline Rate : 140 Variability: Moderate 6-25 bpm Decelerations: Variable Category: Category II Comments: variables with pushing Datetime: 04/13/2024 18:07 Anesthesia Comments: anesthesia here to adjust epidural dose Datetime: 04/13/2024 17:59 Actions for Decelerations: Side to Side; IV Bolus Datetime: 04/13/2024 17:43 STAGE 2 Pushing: Coached on Pushing Pushing Position: Pushing with Contractions Datetime: 04/13/2024 17:30 UTERINE ACTIVITY Monitor Mode: Palpation Accelerations: None Datetime: 04/13/2024 17:21 COMMUNICATION Communication: RN at Bedside; Provider at Bedside Communication Comments: Provider Lori and anesthesia in room Datetime: 04/13/2024 17:14 Quality: Strong Pattern: Normal: <= 5 Contractions in 10 Minutes Resting Tone (Palpate): Relaxed Datetime: 04/13/2024 17:05 PATIENT CARE IV/Blood Work: IV Bolus Started Patient Position/Activity: Right Tilt Datetime: 04/13/2024 17:01 Medication Comments: Pitocin restarted at 2 Datetime: 04/13/2024 16:58 Monitor Interventions for UA: IUPC Inserted Datetime: 04/13/2024 16:15 ANESTHESIA Epidural Procedure: Loading Dose Datetime: 04/13/2024 16:14 Duration (sec): 40-90 Datetime: 04/13/2024 15:34 VAGINAL EXAM Dilatation (cm): 7.0 Effacement (%): 80 Station: -1 Exam by: Zeferino Olmos, RN Datetime: 04/13/2024 14:00 Pitocin Checklist: At Least 1 Acceleration of 15 bpm x 15 Seconds in 30 Minutes or Adequate Variabi lity; No More than 1 Late Deceleration Occurred in Past 30 Minutes; No More than 2 Variable Decelerat ions > 60 Seconds in Duration and decreasing >60 bpm in 30 minutes; No More than 5 Uterine Contractio ns in 10 Minutes for any 20 Minute Interval; Uterus Palpates Soft between Contractions Datetime: 04/13/2024 13:40 Membrane Status: Bulging Membranes Rupture Method: Artificial Amniotic Fluid Color: Clear Amniotic Fluid Amount: Moderate Amniotic Fluid Odor: None Vaginal Bleeding: Normal Show Datetime: 04/13/2024 13:00 I/O Interventions: Up to BR Datetime: 04/13/2024 11:17 Patient Care Comments: LR started at 30 Datetime: 04/13/2024 10:17 Antibiotics: Ampicillin IV 2 Gm Datetime: 04/13/2024 08:32 Cervix, Position: Posterior Datetime: 04/13/2024 08:29 Provider Notified (Name): Refugio Sandoval
== END 2024-04-14 19:33 | disposition home or self-care (01) | DRG 807 ==
LOC: WFO 08:01 → FBP 08:03
PROVIDERS: ADMIT Nurse Practitioner; ATTEND Nurse Practitioner